=== PATIENT | male | born 1995 | race Two or more races ===

== ENCOUNTER 2016-12-05 14:26 | Emergency (ER) | payer OTHER ==
[~2016-12-05] VITALS: Ht 170.2 cm; Wt 90.7 kg
[~2016-12-05 14:26] MED LIST: SERT25TA84
[2016-12-05 14:49] VITALS: BP 136/92
[2016-12-05] MEDS ORDERED: KETOROLAC TROMETH 60MG/2ML VIAL IM ONE (16:15)
[2016-12-05] MEDS ORDERED: LIDOCAINE 1% HCL (LOCAL ANESTH.) INJ 20ML MDV IJ ONE (16:15)
[2016-12-05] MEDS ORDERED: NEOMYCIN-BACITRACIN-POLYM UNITDOSE PKG TOP OINT TOP ONE (16:15)
== END 2016-12-05 17:36 | disposition home or self-care (01) ==
LOC: ER 14:26
DX: S01.111A Laceration without foreign body of right eyelid and periocular area, initial encounter (principal); S40.011A Contusion of right shoulder, initial encounter; Y08.89XA Assault by other specified means, initial encounter; Y93.89 Activity, other specified; Y99.8 Other external cause status; Y92.89 Other specified places as the place of occurrence of the external cause; F12.10 Cannabis abuse, uncomplicated
CPT/HCPCS: 12052; 70486; 73000; 96372; 99284; J1885; J2001

== ENCOUNTER 2016-12-07 08:12 | Emergency (ER) | payer OTHER ==
[~2016-12-07] VITALS: Ht 172.7 cm; Wt 90.7 kg
[2016-12-07 10:54] VITALS: BP 151/96
== END 2016-12-07 11:01 | disposition home or self-care (01) ==
LOC: ER 08:12
DX: S01.111D Laceration without foreign body of right eyelid and periocular area, subsequent encounter (principal); Z48.02 Encounter for removal of sutures